=== PATIENT | male | born 1940 ===

== ENCOUNTER → 2017-03-09 | Outpatient (CLI) | payer MEDICARE, OTHER ==
[2017-03-11 11:21] LABS: PROSTATE SPECIFIC ANTIGEN 4.8 ng/mL (0.0-4.0); PSA FREE 0.67 ng/mL
== END ==
LOC: OD 13:25
PROVIDERS: ATTEND Urology
DX: R97.20 Elevated prostate specific antigen [PSA] (principal)
CPT/HCPCS: 36415; 84154